=== PATIENT | female | born 1940 | race Caucasian/White ===

== ENCOUNTER → 2019-07-22 | Emergency (ER) | payer OTHER ==
[~2019-07-22] VITALS: Ht 157.5 cm; Wt 78.0 kg
[~2019-07-22] MED LIST: CIPRO500 MG PO; MOBIC15 MG PO; NORVASC5 MG; TOPROL XL50 M1
== END | disposition home or self-care (01) ==
LOC: ER 20:24
DX: N13.2 Hydronephrosis with renal and ureteral calculous obstruction (principal); N39.0 Urinary tract infection, site not specified; R10.11 Right upper quadrant pain; R10.31 Right lower quadrant pain; B96.89 Other specified bacterial agents as the cause of diseases classified elsewhere